=== PATIENT | female | born 1970 ===

== ENCOUNTER 2020-10-20 11:34 | Emergency (ER) | payer OTHER ==
[~2020-10-20] VITALS: Ht 165.1 cm; Wt 76.2 kg
[2020-10-20] MEDS ORDERED: SYNTHROID112 MCG PO (11:50)
[2020-10-20] MEDS ORDERED: LEXAPRO5 MG PO (11:51)
[2020-10-20] MEDS ORDERED: PRILOSEC OTC20 MG PO (11:51)
[2020-10-20] MEDS ORDERED: FLOVENT HFA12 G1 IH (11:52)
[2020-10-20] MEDS ORDERED: MUPIROCIN22 GM TOP (12:29)
== END 2020-10-20 12:36 | disposition home or self-care (01) ==
LOC: ER 11:34
DX: S30.870A Other superficial bite of lower back and pelvis, initial encounter (principal); W54.0XXA Bitten by dog, initial encounter; Y93.89 Activity, other specified; Y92.89 Other specified places as the place of occurrence of the external cause; Y99.8 Other external cause status

== ENCOUNTER 2022-07-20 09:43 | Emergency (ER) | payer OTHER ==
[~2022-07-20] VITALS: Ht 165.1 cm; Wt 81.6 kg
[~2022-07-20 09:43] MED LIST: FLOVENT HFA12 G1 IH; LEXAPRO5 MG PO; MUPIROCIN22 GM TOP; PRILOSEC OTC20 MG PO; SYNTHROID112 MCG PO
[2022-07-20] MEDS ORDERED: HYDROCHLOROTH12.5 MG PO (10:16)
== END 2022-07-20 14:40 | disposition home or self-care (01) ==
LOC: ER 09:43
DX: R05.9 Cough, unspecified (principal)

== ENCOUNTER 2022-07-20 11:57 | Outpatient (CLI) | payer OTHER ==
[~2022-07-20 11:57] MED LIST changes: +HYDROCHLOROTH12.5 MG PO
== END 2022-07-20 11:59 | disposition home or self-care (01) ==
LOC: LAB 11:57
DX: A49.3 Mycoplasma infection, unspecified site (principal)

== ENCOUNTER → 2022-09-28 | Emergency (ER) | payer OTHER ==
[~2022-09-28] VITALS: Ht 162.6 cm; Wt 84.4 kg
== END | disposition left against medical advice (07) ==
LOC: ER 14:40
DX: Z53.21 Procedure and treatment not carried out due to patient leaving prior to being seen by health care provider (principal)